=== PATIENT | male | born 1985 | race Caucasian/White ===

== ENCOUNTER 2016-09-20 17:24 | Emergency (ER) | payer SELFPAY ==
--- NOTE | 2016-09-21 10:41 | ER ---
ADMIT: 09/20/2016 RM/LOC: ER [facility] MR#: [id number] [address] [id number] [address] [place] [address] Emergency Room Report SEX: M AGE: 31 : 1985 DATE: 09/20/2016 CHIEF COMPLAINT: Sore throat. HISTORY OF PRESENT ILLNESS: This is a pleasant 31-year-old white male, who presents with mother for a day's duration of a sore throat, rates the pain as a 5/10. Admits to some associated fatigue, nausea. He does have a history of a peritonsillar abscess as a child as well as the hospitalization with intubation for some sort of upper respiratory viral pneumonia. Does have a niece who had similar fatigue and sore throat, however, has not been diagnosed at this point. Admits to some chills and congestion. He has been using Tylenol, ibuprofen for pain. MEDICATIONS: He takes no medications. ALLERGIES: NO ALLERGIES. COURSE IN THE EMERGENCY ROOM: The patient was seen and examined. He does have some pharyngeal erythema. No tonsillar exudates or swelling. No peritonsillar shift or abscess noted. Neck is soft and supple. No lymphadenopathy. He is in no acute distress. He is afebrile and nontoxic. Does have some faint rhinorrhea in the nose, chest is clear. No wheezes or rhonchi. Heart is regular. No evidence of any rash. Did get a rapid strep on him which was negative. IMPRESSION: Acute pharyngitis. DISPOSITION: Patient is to increase fluids as tolerated. Continue using Tylenol or Motrin as needed for pain. Certainly return with worsening signs or symptoms or follow up with Dr. Negro if he is not improving. Questions sought and answered to best of my ability and the patient's satisfaction. Discharged in stable condition. ASHIA Horvath / Edgard Terrell MD / ewa JOB #: [id number] CC: Edgard Terrell MD, Attending Physician
== END 2016-09-20 18:30 | disposition home or self-care (01) ==
LOC: ER 17:24
DX: J02.9 Acute pharyngitis, unspecified (principal); F17.210 Nicotine dependence, cigarettes, uncomplicated